=== PATIENT | male | born 1990 | race American Indian/Alaskan Native ===

== ENCOUNTER 2016-08-14 03:48 | Emergency (ER) | payer SELFPAY ==
[2016-08-14 04:03] VITALS: BP 126/85
--- NOTE | 2016-08-14 04:22 | Emergency Department Report ---
Upper Extremity - HPI Chief Complaint: Extremity Injury, Upper Stated Complaint: HAND INJURY Time Seen by Provider: 08/14/16 04:17 Upper Extremity: Right Hand (swelling and pain after injury) Occurred When: Today Mechanism: Other (pulling Object) Severity: moderate Symptoms: Yes Pain with Movement (right hand), Yes Swelling (right hand), No Deformity, No Limited Range of Movement, No Numbness, No Weakness, No Bruising/ Ecchymosis, No Laceration or Abrasion Other History: Patient here reports that he was at work and he was playing and object and he felt like he pulled a muscle in ordered hemorrhage bone in his hand.He said he was moving a toilet at work. This happened and a couple hours ago and he said he took Aleve. Pain is 7 out of 10 at present. She reports that the lump on the back of his hand was bigger But it's getting smaller. Denies any numbness or tingling to right hand. ED Review of Systems ROS: Stated complaint: HAND INJURY Other details as noted in HPI Comment: All other systems reviewed and negative Constitutional: no symptoms reported Respiratory: no symptoms reported Cardiovascular: denies: chest pain, palpitations, edema, syncope Musculoskeletal: arthralgia. denies: back pain Skin: denies: rash Neurological: denies: weakness, numbness, paresthesias, confusion ED Past Medical Hx - Past Medical History Previous Medical History?: No - Surgical History Past Surgical History?: No - Family History Family history: no significant - Social History Smoking Status: Never Smoker Substance Use Type: None - Medications Home Medications: Home Medications Medication Instructions Recorded Confirmed Last Taken Type Ibuprofen [Motrin] 600 mg PO Q8H PRN #15 tablet 08/14/16 Unknown Rx Upper Extremity Exam - Exam General: Vital signs noted. No distress. Alert and acting appropriately. This is a 26-year-old male well-nourished well-developed in no acute distress Head and Torso: No HEENT Abnormality, No Neck Tenderness, No Chest/Lungs Abnormality, No Abdominal Tenderness, No Back Tenderness Shoulder Exam: Yes Normal Range of Motion in Shoulder, No Shoulder Tenderness, No Clavicle Tenderness, No Shoulder Deformity, No AC Joint Tenderness Arm Exam: No Arm/Humerus Tenderness, No Arm Deformity Elbow: Yes Normal Range of Motion in Elbow, No Elbow Tenderness, No Elbow Deformity Forearm: No Forearm Tenderness, No Forearm Deformity, No Pain with Pronation, No Pain with Supination Wrist: Yes Normal ROM in Wrist, No Wrist Tenderness, No Wrist Deformity, No Snuffbox Tenderness, No Pain with Axial Thumb Compression Hand: Yes Hand Tenderness (right dorsal aspect of hand with mild swelling), Yes Normal ROM in Digit(s), No Hand Deformity, No Digit Tenderness, No Digit(s) Deformity, No Tendon Dysfunction CMS Exam: Yes Normal Distal Pulses, Yes Normal Capillary Refill, Yes Normal Distal Sensation, No Broken Skin ED Course Vital Signs 08/14/16 03:57 Temperature 97.5 F L Pulse Rate 65 Respiratory 20 Rate Blood Pressure 126/85 O2 Sat by Pulse 99 Oximetry - Reevaluation(s) Reevaluation #1: 08/14/16 04:22 Patient stable and currently in x-ray - Orthopedic Splinting/Casting Injury #1 Side: right Upper Extremity Injury Location: hand Upper Extremity Immobilizer: Baldev wrap ED Medical Decision Making - Radiology Data Radiology results: report reviewed X-ray results of right hand reveal no fracture or dislocation. - Medical Decision Making ED course: See procedure note for details on splinting. I Discussed the patient that his x-ray was negative for fracture or dislocation. RICE therapy explained. Patient discharged home with prescription for Motrin and to rest. Critical care attestation.: If time is entered above; I have spent that time in minutes in the direct care of this critically ill patient, excluding procedure time. ED Disposition Clinical Impression: Arthralgia of right hand Contusion of right hand Qualifiers: Encounter type: initial encounter Qualified Code(s): S60.221A - Contusion of right hand, initial encounter Disposition: DISCHARGED TO HOME OR SELFCARE Is pt being admited?: No Does the pt Need Aspirin: No Condition: Stable Instructions: Contusion in Adults (ED), Arthralgia (ED), RICE Therapy (ED) Prescriptions: Ibuprofen [Motrin] 600 mg PO Q8H PRN #15 tablet PRN Reason: Pain Referrals: PRIMARY CAREMD [Primary Care Provider] - 3-5 Days JASON GHOTRA MD [Staff Physician] - 08/19/16 Forms: Work/School Release Form(ED)
--- NOTE | 2016-08-14 04:54 | XRay Report ---
FINAL REPORT PROCEDURE: XR HAND 2V RT TECHNIQUE: RIGHT hand radiographs, AP and lateral views. CPT 48962-YG HISTORY: PAIN, edema, COMPARISON: No prior studies are available for comparison. FINDINGS: Fracture (s) and/or Dislocation(s): None . Alignment: Normal . Joint space(s): Normal . Soft tissues: Normal . Bone mineralization: Normal . Foreign bodies: None . IMPRESSION: There is no evidence of an acute fracture or dislocation..
== END 2016-08-14 05:58 | disposition home or self-care (01) ==
LOC: ED 03:48
DX: S60.221A Contusion of right hand, initial encounter (principal); M79.641 Pain in right hand; W22.8XXA Striking against or struck by other objects, initial encounter; Y93.9 Activity, unspecified; Y92.9 Unspecified place or not applicable; Y99.9 Unspecified external cause status
CPT/HCPCS: 99283